=== PATIENT | female | born 1970 | race Caucasian/White ===

== ENCOUNTER 2021-05-04 13:31 | Emergency (ER) | payer BC ==
[~2021-05-04] VITALS: Ht 172.7 cm; Wt 120.9 kg
[2021-05-04] MEDS ORDERED: HYDROcodone/acetaminophen 5mg/325mg tablet PO ONE (19:00)
[2021-05-04] MEDS ORDERED: ketorolac tromethamine 15mg/ml inj. IM ONE (19:00)
[2021-05-04] MEDS ORDERED: IBUP-1984 PO (19:05)
[2021-05-04 19:15] VITALS: BP 134/79
== END 2021-05-04 19:44 | disposition home or self-care (01) ==
LOC: ER 13:32
DX: M25.562 Pain in left knee (principal); M25.462 Effusion, left knee; Z88.8 Allergy status to other drugs, medicaments and biological substances; Z79.899 Other long term (current) drug therapy
CPT/HCPCS: 29505; 73564; 96372; 99283; J1885

== ENCOUNTER 2024-12-31 07:56 | Emergency (ER) | payer BC ==
[~2024-12-31] VITALS: Ht 170.2 cm; Wt 130.9 kg
[2024-12-31] MEDS: ondansetron 4mg rapidly disintigrating tab PO ONE (10:29)
[2024-12-31] MEDS: ketorolac trometh 30MG/ML vial 30 MG/ML VIAL IM ONE (10:30)
[2024-12-31] MEDS: cyclobenzaprine 10mg tablet PO ONE (10:31)
[2024-12-31] MEDS: HYDROcodone/acetaminophen 5mg/325mg tablet PO ONE (10:32)
[2024-12-31] MEDS ORDERED: HYDR-3972 PO (13:00)
[2024-12-31] MEDS ORDERED: CYCL-1 PO (13:00)
[2024-12-31 13:38] VITALS: BP 165/80; PULSE 78; RESP 16; O2SAT 97
[2024-12-31 13:39] VITALS: TEMP 97.3
== END 2024-12-31 13:30 | disposition home or self-care (01) ==
LOC: ER 07:58
DX: S39.012A Strain of muscle, fascia and tendon of lower back, initial encounter (principal); M54.10 Radiculopathy, site unspecified; Z88.8 Allergy status to other drugs, medicaments and biological substances; Z91.041 Radiographic dye allergy status; X58.XXXA Exposure to other specified factors, initial encounter; Y93.89 Activity, other specified; Y92.89 Other specified places as the place of occurrence of the external cause; Y99.8 Other external cause status
CPT/HCPCS: 96372; 99284; J1885